=== PATIENT | male | born 1990 | race Caucasian/White ===

== ENCOUNTER 2025-09-06 15:12 | Emergency (ER) | payer BC ==
[2025-09-06] MEDS: Lidocaine 1% with EPINEPHrine 1:100,000 20 ML MDV INJECT ONE (15:46)
[2025-09-06] MEDS: Bacitracin Oint 1 GM U/D Packet TOP ONE (16:07)
== END 2025-09-06 16:15 | disposition home or self-care (01) ==
LOC: LB.ED 15:12
DX: S01.81XA Laceration without foreign body of other part of head, initial encounter (principal); W18.40XA Slipping, tripping and stumbling without falling, unspecified, initial encounter
CPT/HCPCS: 12052; 99282; J2004